=== PATIENT | female | born 1970 | race Caucasian/White ===

== ENCOUNTER 2022-07-13 10:40 | Emergency (ER) | payer BC ==
[~2022-07-13] VITALS: Ht 170.2 cm; Wt 88.9 kg
[2022-07-13 11:03] LABS: BASOPHILS % 0.6 % (0.0-1.0); EOSINOPHILS # (AUTO) 0.1 (0.0-0.4); EOSINOPHILS % 1.1 % (0.0-6.0); HEMOGLOBIN 15.9 g/dL (12.0-16.0); LYMPHOCYTES # (AUTO) 2.1 (1.0-3.2); LYMPHOCYTES % 38.8 % (18.0-39.1); MEAN CORPUSCULAR HEMOGLOBIN 30.1 pg (28-32); MEAN CORPUSCULAR HGB CONC 31.8 g/dL (31-35); MEAN CORPUSCULAR VOLUME 94.5 fL (81-99); MONOCYTES # (AUTO) 0.4 (0.2-0.8); NEUTROPHILS # (AUTO) 2.8 (2.1-6.9); NEUTROPHILS % 51.3 % (38.7-80.0); PLATELET COUNT 225 x10e3/uL (140-360); RED BLOOD COUNT 5.29 x10e6/uL (3.6-5.1); RED CELL DISTRIBUTION WIDTH 12.7 % (11.7-14.4)
[2022-07-13 11:28] LABS: ALBUMIN 4.2 g/dL (3.5-5.0); ALBUMIN/GLOBULIN RATIO 1.2 (0.8-2.0); ANION GAP 14.3 mmol/L (8-16); CALCIUM 9.7 mg/dL (8.4-10.2); CREATININE, SERUM 0.85 mg/dL (0.57-1.11); POTASSIUM 4.3 mmol/L (3.5-5.1)
[2022-07-13 12:48] VITALS: BP 137/82
== END 2022-07-13 12:38 | disposition home or self-care (01) ==
LOC: ER 10:44
DX: R07.9 Chest pain, unspecified (principal); H53.8 Other visual disturbances; Z20.822 Contact with and (suspected) exposure to COVID-19
CPT/HCPCS: 36415; 71045; 80053; 84484; 85025; 93005; 99284; U0002